=== PATIENT | female | born 1970 | race Caucasian/White ===

== ENCOUNTER 2017-04-30 00:07 | Emergency (ER) | payer OTHER ==
[~2017-04-30] VITALS: Ht 157.5 cm; Wt 75.0 kg
[2017-04-30 00:09] VITALS: BP 128/80; PULSE 80; RESP 18; TEMP 97.1; O2SAT 98
[2017-04-30] MEDS ORDERED: GABA800T PO (00:14)
[2017-04-30] MEDS ORDERED: SODIUM CHLOR 0.9% 1000 ML INJ 1,000 ML IV ONE (00:18)
[2017-04-30] MEDS ORDERED: SODIUM CHLORIDE 0.9% FLUSH 10 ML FLUSH IVF PRN (00:30)
--- NOTE | 2017-04-30 00:43 | RADRPT ---
EXAM DATE/TIME: 04/30/2017 00:24 [place] COMPARISON: No previous studies available for comparison. INDICATIONS : Shortness of breath. MEDICAL HISTORY : Unknown SURGICAL HISTORY : Unknown ENCOUNTER: Initial ACUITY: 1 day PAIN SCORE: 0/10 LOCATION: Bilateral chest FINDINGS: A single view of the chest demonstrates the lungs to be symmetrically aerated without evidence of mas s, infiltrate or effusion. The cardiomediastinal contours are unremarkable. Osseous structures are intact. CONCLUSION: No evidence of acute cardiopulmonary disease. Nicho Matthews MD on April 30, 2017 at 0:42 Board Certified Radiologist. This report was verified electronically.
[2017-04-30 01:00] VITALS: RESP 16; O2SAT 87; O2SAT 98
[2017-04-30 01:06] LABS: AUTOMATED NEUTROPHIL # 2.2 TH/MM3 (1.8-7.7); BASOPHIL % 0.6 % (0.0-2.0); HEMOGLOBIN 9.8 GM/DL (11.6-15.3); LYMPHOCYTE # 1.6 TH/MM3 (1.0-4.8); MEAN CELL VOLUME 78.8 FL (80.0-100.0); MEAN CORPUSCULAR HEMOGLOBIN 25.7 PG (27.0-34.0); MEAN CORPUSCULAR HGB CONC 32.6 % (32.0-36.0); MONO % 9.7 % (0.0-8.0); MONOCYTE # 0.4 TH/MM3 (0-0.9); NEUT % 51.7 % (16.0-70.0); PLATELET COUNT 276 TH/MM3 (150-450); RED BLOOD COUNT 3.81 MIL/MM3 (4.00-5.30); RED CELL DISTRIBUTION WIDTH 18.8 % (11.6-17.2); WHITE BLOOD COUNT 4.3 TH/MM3 (4.0-11.0)
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
[2017-04-30 01:20] LABS: PROTHROMBIN TIME - PATIENT 10.4 SEC (9.8-11.6)
[2017-04-30 01:30] LABS: ALKALINE PHOSPHATASE 95 U/L (45-117); TOTAL BILIRUBIN ADULT 0.2 MG/DL (0.2-1.0); TOTAL PROTEIN 8.2 GM/DL (6.4-8.2)
[2017-04-30 01:48] LABS: ALBUMIN 3.5 GM/DL (3.4-5.0); ALT (GPT) 85 U/L (10-53); AST (GOT) 68 U/L (15-37); BICARBONATE 24.1 MEQ/L (21.0-32.0); BLOOD UREA NITROGEN 9 MG/DL (7-18); CALCIUM 8.5 MG/DL (8.5-10.1); CHLORIDE 103 MEQ/L (98-107); CREATININE 0.76 MG/DL (0.50-1.00); GLOMERULAR FILTRATION RATE 82 ML/MIN (>89); GLUCOSE,RANDOM 172 MG/DL (74-106); SODIUM (NA) 136 MEQ/L (136-145)
[2017-04-30 01:49] LABS: ACETAMINOPHEN LESS THAN 2.0 MCG/ML (10.0-30.0)
--- NOTE | 2017-04-30 12:54 | EKG ---
Date Performed: 04/30/2017 Time Performed: 01:23:33 PTAGE: 46 years EKG: Sinus rhythm INCOMPLETE RIGHT BUNDLE BRANCH BLOCK BORDERLINE ECG NO PREVIOUS TRACING DOCTOR: Art Luevano Interpretating Date/Time 04/30/2017 12:52:36
== END 2017-04-30 06:34 | disposition home or self-care (01) ==
LOC: NEPE 00:07
DX: T40.601A Poisoning by unspecified narcotics, accidental (unintentional), initial encounter (principal); R74.8 Abnormal levels of other serum enzymes; R94.31 Abnormal electrocardiogram [ECG] [EKG]; G89.29 Other chronic pain; M54.2 Cervicalgia; M54.9 Dorsalgia, unspecified; G62.9 Polyneuropathy, unspecified; F17.200 Nicotine dependence, unspecified, uncomplicated
CPT/HCPCS: 71010; 80053; 80307; 84703; 85025; 85610; 85730; 93005; 99285; J7030